=== PATIENT | female | born 1965 | race Caucasian/White ===

== ENCOUNTER → 2021-08-12 | Outpatient (CLI) | payer OTHER ==
[~2021-08-12] MED LIST: Sinemet 25-1001 EACH PO
== END | disposition home or self-care (01) ==
LOC: LAB 13:48 → LAB SHORT 13:48
DX: R82.90 Unspecified abnormal findings in urine (principal)
CPT/HCPCS: 87077; 87086; 87186

== ENCOUNTER → 2021-09-16 | Outpatient (CLI) | payer OTHER | LOC: LAB SHORT 17:40 | DX: N39.0 Urinary tract infection, site not specified (principal) | CPT/HCPCS: 87086 ==

== ENCOUNTER → 2022-03-18 | Outpatient (CLI) | payer OTHER | LOC: LAB SHORT 14:15 → LAB 14:15 | DX: N39.0 Urinary tract infection, site not specified (principal) | CPT/HCPCS: 87086 ==